=== PATIENT | female | born 1945 | race Caucasian/White ===

== ENCOUNTER 2018-10-28 20:10 | Emergency (ER) | payer OTHER ==
--- NOTE | 2018-10-28 21:13 | RAD REPORT ---
EXAM DESCRIPTION: RAD - Pelvis - 10/28/2018 9:05 pm CLINICAL HISTORY: PAIN Dislocation COMPARISON: None FINDINGS: AP pelvis and right hip-multiple projections A right total hip arthroplasty is noted to which is dislocated. The femoral head component appears caceres perior to the acetabular cup. No fracture is seen.
[2018-10-28] MEDS ORDERED: NA CHLORIDE 0.9% 1,000 ML ONE (22:35)
[2018-10-28] MEDS ORDERED: PROPOFOL 200 MG/20 ML VIAL IV ONE (22:35)
--- NOTE | 2018-10-28 23:43 | EDPHYS ---
Physician Documentation [facility] Name: Lizz Pettit Age: 73 yrs Sex: Female : 1945 Arrival Date: 10/28/2018 Time: 20:13 Bed 4 Private MD: ED Physician Haile Wilks HPI: 10/29 05:50 This 73 yrs old Female presents to ER via EMS with complaints of Hip Injury. tw4 05:50 The patient or guardian reports an injury, pain. that occurred at home, sustained from tw4 unknown reason, the right lower extremity is shortened, right leg is externally rotated, The patient is not able to ambulate. The complaints affect the right hip. Onset: The symptoms/episode began/occurred today. Modifying factors: The symptoms are alleviated by nothing, the symptoms are aggravated by nothing. Associated signs and symptoms: Loss of consciousness: the patient experienced no loss of consciousness. The patient has not experienced similar symptoms in the past. Historical: - Allergies: 10/28 20:21 No Known Allergies; lp1 - Home Meds: 20:21 rosuvastatin 10 mg oral tab 1 tab once daily [Active]; prednisone 5 mg Oral tab once lp1 daily [Active]; leflunomide 20 mg oral tab 1 tab once daily [Active]; duloxetine 30 mg oral cpDR 1 cap once daily [Active]; omeprazole 20 mg Oral cpDR 1 cap 2 times per day [Active]; hydroxychloroquine 200 mg oral tab 2 times per day [Active]; telmisartan 40 mg oral tab 1 tab once daily [Active]; - PMHx: 20:21 Hypertension; Hyperlipidemia; Arthritis; Rheumatoid Arthritis; lp1 - PSHx: 20:21 R Hip replacement; Shoulder surgery; back surgery; L arm surgery; lp1 - Immunization history:: Adult Immunizations up to date. - Social history:: Smoking status: Patient/guardian denies using tobacco. - Ebola Screening: : No symptoms or risks identified at this time. ROS: 10/29 05:50 Constitutional: Negative for fever, chills, and weight loss, Eyes: Negative for injury, tw4 pain, redness, and discharge, Cardiovascular: Negative for chest pain, palpitations, and edema, Respiratory: Negative for shortness of breath, cough, wheezing, and pleuritic chest pain, Abdomen/GI: Negative for abdominal pain, nausea, vomiting, diarrhea, and constipation, Back: Negative for injury and pain. Skin: Negative for injury, rash, and discoloration, Neuro: Negative for headache, weakness, numbness, tingling, and seizure. MS/extremity: Positive for injury or acute deformity, decreased range of motion, pain, swelling, tenderness. Exam: 05:50 Constitutional: This is a well developed, well nourished patient who is awake, alert, tw4 and in no acute distress. Head/Face: Normocephalic, atraumatic. Chest/axilla: Normal chest wall appearance and motion. Nontender with no deformity. No lesions are appreciated. Cardiovascular: Regular rate and rhythm with a normal S1 and S2. No gallops, murmurs, or rubs. Normal PMI, no JVD. No pulse deficits. Respiratory: Lungs have equal breath sounds bilaterally, clear to auscultation and percussion. No rales, rhonchi or wheezes noted. No increased work of breathing, no retractions or nasal flaring. Abdomen/GI: Soft, non-tender, with normal bowel sounds. No distension or tympany. No guarding or rebound. No evidence of tenderness throughout. Back: No spinal tenderness. No costovertebral tenderness. Full range of motion. 05:50 Musculoskeletal/extremity: Extremities: noted in the right hip: decreased ROM, pain, ROM: limited passive range of motion, in the right hip, right gluteal fold and right inner thigh, Joints: the right hip displays dislocation. Vital Signs: 10/28 20:17 BP 136 / 72; Pulse 87; Resp 18; Temp 99(O); Pulse Ox 100% on R/A; Weight 81.65 kg; lp1 Height 5 ft. 3 in. (160.02 cm); Pain 3/10; 21:15 BP 122 / 78; Pulse 77; Resp 18; Pulse Ox 97% on R/A; lp1 22:00 BP 119 / 69; Pulse 80; Resp 18; Pulse Ox 100% ; ds4 23:02 BP 120 / 96; Pulse 79; Resp 18; Temp 98.6; Pulse Ox 100% on R/A; Pain 0/10; ak1 23:19 BP 111 / 64; Pulse 83; Resp 18; Pulse Ox 99% on R/A; ak1 20:17 Body Mass Index 31.89 (81.65 kg, 160.02 cm) lp1 Procedures: 10/29 05:50 Reduction: of the right hip, using traction, Patient tolerated well. Post reduction tw4 film - reveals normal alignment. Joint Treatment:. Moderate sedation: Pre-procedure assessment: ASA physical classification: I - healthy, no underlying organic disease, Airway assessment: able to hyperextend neck, able to maintain airway, can open mouth without difficulty, Mallampati classification of tongue size: I - faucial pillars, soft palate, and uvula can be fully visualized, Monitoring during procedure: cardiac/vascular sonographer, continuous pulse oximetry, nurse at bedside at all times, Medications employed: propofol, pt tolerated procedure well, Post-procedure assessment: the patient is not sedated, Respiratory status: even and unlabored, a reversal agent was not used. MDM: 10/28 20:25 Patient medically screened. tw4 10/29 05:50 Differential diagnosis: hip fracture, intertrochanteric fracture, femoral neck tw4 fracture, femoral shaft fracture. Data reviewed: vital signs, nurses notes. Data interpreted: Pulse oximetry: Interpretation: normal. Counseling: I had a detailed discussion with the patient and/or guardian regarding: the historical points, exam findings, and any diagnostic results supporting the discharge/admit diagnosis. 05:50 Test interpretation: by ED physician or midlevel provider: plain radiologic studies. tw4 Special discussion: I discussed with the patient/guardian in detail that at this point there is no indication for admission to the hospital. It is understood, however, that if the symptoms persist or worsen the patient needs to return immediately for re-evaluation. ED course: Pt underwent moderate sedation, traction and manipulation used with reduction of right hip. Pt tolerated procedure well. 10/28 20:26 Order name: Pelvis XRAY tw4 10/28 20:26 Order name: Saline Lock; Complete Time: 22:22 tw4 10/28 20:35 Order name: Hip Right 2 View EDIA 10/28 22:44 Order name: Hip Right 2 View XRAY [facility] 10/28 22:09 Order name: Cardiac monitoring; Complete Time: 22:22 tw4 Administered Medications: 10/28 22:30 Drug: Propofol 100 mg Route: IVP; Site: left antecubital; ak1 23:00 Follow up: Response: No adverse reaction ak1 Disposition: 10/28/18 23:42 Discharged to Home. Impression: Central dislocation of right hip. - Condition is Stable. - Discharge Instructions: Hip Dislocation, [id number]. - Prescriptions for Tramadol 50 mg Oral Tablet - take 1 tablet by ORAL route every 8 hours as needed; 12 tablet. - Medication Reconciliation Form, Thank You Letter, Antibiotic Education, Prescription Opioid Use form. - Follow up: Private Physician; When: Upon discharge from the Emergency Department; Reason: If symptoms return, Recheck today's complaints, Continuance of care. - Problem is new. - Symptoms have improved. Signatures: Dispatcher [employer] [facility] Meaghan Lemus, RN RN lp1 Marta Yarbrough RN RN ak1 Haile Wilks MD MD tw4 Corrections: (The following items were deleted from the chart) 20:35 20:26 Hip Right 1 View+RAD.RAD.BRZ ordered. [facility] 10/29 00:00 10/28 23:42 10/28/2018 23:42 Discharged to Home. Impression: Central dislocation of ak1 right hip. Condition is Stable. Forms are Medication Reconciliation Form, Thank You Letter, Antibiotic Education, Prescription Opioid Use. Follow up: Private Physician; When: Upon discharge from the Emergency Department; Reason: If symptoms return, Recheck today's complaints, Continuance of care. Problem is new. Symptoms have improved. tw4
--- NOTE | 2018-10-28 23:43 | ER ---
Nurse's Notes [facility] Name: Lizz Pettit Age: 73 yrs Sex: Female : 1945 Arrival Date: 10/28/2018 Time: 20:13 Bed 4 Private MD: Diagnosis: Central dislocation of right hip Presentation: 10/28 20:15 Presenting complaint: EMS states: Patient was bending over couch to pepper picker Legos and lp1 felt R hip dislocate; States happens often with wrong movement; Denies any other pain. Transition of care: patient was not received from another setting of care. Onset of symptoms was October 28, 2018 at 19:00. Risk Assessment: Do you want to hurt yourself or someone else? Patient reports no desire to harm self or others. Initial Sepsis Screen: Does the patient meet any 2 criteria? No. Patient's initial sepsis screen is negative. Does the patient have a suspected source of infection? No. Patient's initial sepsis screen is negative. Care prior to arrival: None. 20:15 Method Of Arrival: EMS: [facility] lp1 20:15 Acuity: KEELY 3 lp1 Historical: - Allergies: 20:21 No Known Allergies; lp1 - Home Meds: 20:21 rosuvastatin 10 mg oral tab 1 tab once daily [Active]; prednisone 5 mg Oral tab once lp1 daily [Active]; leflunomide 20 mg oral tab 1 tab once daily [Active]; duloxetine 30 mg oral cpDR 1 cap once daily [Active]; omeprazole 20 mg Oral cpDR 1 cap 2 times per day [Active]; hydroxychloroquine 200 mg oral tab 2 times per day [Active]; telmisartan 40 mg oral tab 1 tab once daily [Active]; - PMHx: 20:21 Hypertension; Hyperlipidemia; Arthritis; Rheumatoid Arthritis; lp1 - PSHx: 20:21 R Hip replacement; Shoulder surgery; back surgery; L arm surgery; lp1 - Immunization history:: Adult Immunizations up to date. - Social history:: Smoking status: Patient/guardian denies using tobacco. - Ebola Screening: : No symptoms or risks identified at this time. Screenin:21 Abuse screen: Denies threats or abuse. Denies injuries from another. Nutritional lp1 screening: No deficits noted. Tuberculosis screening: No symptoms or risk factors identified. Fall Risk Total Neves Fall Scale indicates High Risk Score (45 or more points). Fall prevention measures have been instituted. Side Rails Up X 2 As available patient and family educated on Fall Prevention Program and Strategies. Assessment: 20:21 General: Appears in no apparent distress. Behavior is appropriate for age. Pain: lp1 Complains of pain in right hip Pain currently is 3 out of 10 on a pain scale. Quality of pain is described as aching. Neuro: Level of Consciousness is awake, alert, obeys commands, Oriented to person, place, time, situation. Cardiovascular: Patient's skin is warm and dry. Pulses are 2+ in right dorsalis pedis artery and left dorsalis pedis artery. Respiratory: Respiratory effort is even, unlabored. GI: No deficits noted. : No deficits noted. EENT: No deficits noted. Derm: Skin is pink, warm \T\ dry. Musculoskeletal: Circulation, motion, and sensation intact. Range of motion: limited in right hip. 21:15 Reassessment: Patient appears in no apparent distress at this time. No changes from lp1 previously documented assessment. Patient and/or family updated on plan of care and expected duration. Pain level reassessed. 22:21 Reassessment: Patient aware of conscious sedation; family at bedside. lp1 23:01 Reassessment: pt awake and alert after sedation for reduction of the right hip. pt ak1 family at bedside. see sedation flow sheet for vitals. Vital Signs: 20:17 BP 136 / 72; Pulse 87; Resp 18; Temp 99(O); Pulse Ox 100% on R/A; Weight 81.65 kg; lp1 Height 5 ft. 3 in. (160.02 cm); Pain 3/10; 21:15 BP 122 / 78; Pulse 77; Resp 18; Pulse Ox 97% on R/A; lp1 22:00 BP 119 / 69; Pulse 80; Resp 18; Pulse Ox 100% ; ds4 23:02 BP 120 / 96; Pulse 79; Resp 18; Temp 98.6; Pulse Ox 100% on R/A; Pain 0/10; ak1 23:19 BP 111 / 64; Pulse 83; Resp 18; Pulse Ox 99% on R/A; ak1 20:17 Body Mass Index 31.89 (81.65 kg, 160.02 cm) lp1 ED Course: 20:13 Patient arrived in ED. lp1 20:17 Triage completed. lp1 20:17 Arm band placed on left wrist. lp1 20:21 Patient has correct armband on for positive identification. Placed in gown. Bed in low lp1 position. Call light in reach. Side rails up X2. Pulse ox on. NIBP on. 20:25 Haile Wilks MD is Attending Physician. tw4 21:05 Pelvis XRAY In Process Unspecified. EDMS 21:05 Hip Right 2 View In Process Unspecified. EDMS 21:25 Meaghan Lemus, RN is Primary Nurse. lp1 21:45 Consent for conscious sedation explained by staff, explained by physician, signed by lp1 patient. 22:22 Inserted saline lock: 22 gauge in left antecubital area, using aseptic technique. ak1 22:22 Assist provider with reduction of right pathologic or non traumatic hip using ak1 manipulation, Set up for procedure. Performed by Haile Wilks MD. Oxygen administration via non-rebreather mask \T\ 15L/min. 22:23 ui designer on. Door closed. Visitors limited. Warm blanket given. ak1 23:05 X-ray completed. Portable x-ray completed in exam room. Patient tolerated procedure la2 well. 23:07 Hip Right 2 View XRAY In Process Unspecified. EDMS 23:59 IV discontinued, intact, bleeding controlled, No redness/swelling at site. Pressure ak1 dressing applied. Administered Medications: 22:30 Drug: Propofol 100 mg Route: IVP; Site: left antecubital; ak1 23:00 Follow up: Response: No adverse reaction ak1 Outcome: 23:42 Discharge ordered by . tw4 23:59 Discharged to home via wheelchair, with family. ak1 23:59 Condition: good 23:59 Discharge instructions given to patient, family, Instructed on discharge instructions, follow up and referral plans. no drinking with medication, no driving heavy equipment, medication usage, Demonstrated understanding of instructions, follow-up care, medications, Prescriptions given X 1. 01/03 00:00 Patient left the ED. ak1 Signatures: Dispatcher [employer] [facility] Meaghan Lemus, RAJWINDER RN lp1 Tam Triplett ds4 Marta Yarbrough RN RN ak1 Adriana, Haile Berrios, [place] tw4
--- NOTE | 2018-10-29 08:03 | RAD REPORT ---
EXAM DESCRIPTION: RAD - Hip Right 2 View - 10/28/2018 11:09 pm CLINICAL HISTORY: Dislocation of right hip implant COMPARISON: October 28 FINDINGS: AP and frog-leg views of the right hip were obtained. Dislocated femoral component has be en reduced. Heterotopic bone superior to the greater trochanter and along the medial margin of the im plant neck are unchanged. IMPRESSION: Femoral component has been reduced back into the acetabular cup. No residual suspicious or unexpected finding.
--- NOTE | 2018-10-29 10:59 | RAD REPORT ---
EXAM DESCRIPTION: RAD - Hip Right 2 View - 10/28/2018 9:05 pm CLINICAL HISTORY: PAIN Dislocation COMPARISON: None FINDINGS: AP pelvis and right hip-multiple projections A right total hip arthroplasty is noted to which is dislocated. The femoral head component appears caceres perior to the acetabular cup. No fracture is seen.
== END 2018-10-29 | disposition home or self-care (01) ==
LOC: ER 20:10
PROC: 0SS9XZZ Reposition Right Hip Joint, External Approach (ICD-10-PCS; principal; 2018-10-29)
DX: S73 Dislocation and sprain of joint and ligaments of hip (principal); X58.XXXA Exposure to other specified factors, initial encounter; Y93.9 Activity, unspecified; Y92.009 Unspecified place in unspecified non-institutional (private) residence as the place of occurrence of the external cause; I10 Essential (primary) hypertension; E78.5 Hyperlipidemia, unspecified
CPT/HCPCS: 27250; 72170; 73502 ×2; 96374; 99285; J2704; J7030

== ENCOUNTER 2020-12-08 15:08 | Emergency (ER) | payer OTHER ==
--- NOTE | 2020-12-08 20:38 | RAD REPORT ---
EXAM DESCRIPTION: RAD - Shoulder Left 2 View - 12/08/2020 8:12 pm CLINICAL HISTORY: PAIN COMPARISON: No comparisons FINDINGS: There is a dislocated left total shoulder arthroplasty noted. Fracture is not evident.
[2020-12-08] MEDS ORDERED: TRAMADOL HCL 50 MG TAB ONE (20:43)
[2020-12-08] MEDS ORDERED: NA CHLORIDE 0.9% 1,000 ML ONE (21:20)
[2020-12-08] MEDS ORDERED: propofoL 200 MG/20 ML VIAL IV ONE (21:20)
--- NOTE | 2020-12-08 22:15 | EDPHYS ---
Physician Documentation [facility] Name: Lizz Pettit Age: 75 yrs Sex: Female : 1945 Arrival Date: 12/08/2020 Time: 15:13 Bed 18 Private MD: ED Physician Haile Wilks HPI: 12/09 04:42 This 75 yrs old Female presents to ER via Ambulatory with complaints of tw4 Shoulder Pain. 04:42 The patient or guardian complains of decreased range of motion, deformity. left tw4 shoulder. Context: The problem was sustained at home. Onset: The symptoms/episode began/occurred this morning, today. Modifying factors: the symptoms are alleviated by remaining still, The symptoms are aggravated by movement. Severity of symptoms: At their worst the symptoms were moderate, in the emergency department the symptoms are unchanged. The patient has not experienced similar symptoms in the past. Historical: - PMHx: 12/08 15:21 Arthritis; Hyperlipidemia; Hypertension; Rheumatoid Arthritis; ll1 - PSHx: 15:21 R Hip replacement; back surgery; Shoulder surgery; L arm surgery; ll1 - Immunization history:: Flu vaccine is up to date. - Social history:: Smoking status: Patient denies any tobacco usage or history of. ROS: 12/09 04:42 Constitutional: Negative for fever, chills, and weight loss, Eyes: Negative for injury, tw4 pain, redness, and discharge, Cardiovascular: Negative for chest pain, palpitations, and edema, Respiratory: Negative for shortness of breath, cough, wheezing, and pleuritic chest pain, Abdomen/GI: Negative for abdominal pain, nausea, vomiting, diarrhea, and constipation, Back: Negative for injury and pain, Skin: Negative for injury, rash, and discoloration, Neuro: Negative for headache, weakness, numbness, tingling, and seizure. MS/extremity: Positive for injury or acute deformity, decreased range of motion, deformity, pain, Negative for abrasion, bite, decreased range of motion, ecchymosis, erythema, laceration, paresthesias, puncture, rash, swelling, tingling. Exam: 04:42 Constitutional: This is a well developed, well nourished patient who is awake, alert, tw4 and in no acute distress. Head/Face: Normocephalic, atraumatic. Chest/axilla: Normal chest wall appearance and motion. Nontender with no deformity. No lesions are appreciated. Cardiovascular: Regular rate and rhythm with a normal S1 and S2. No gallops, murmurs, or rubs. Normal PMI, no JVD. No pulse deficits. Respiratory: Lungs have equal breath sounds bilaterally, clear to auscultation and percussion. No rales, rhonchi or wheezes noted. No increased work of breathing, no retractions or nasal flaring. Abdomen/GI: Soft, non-tender, with normal bowel sounds. No distension or tympany. No guarding or rebound. No evidence of tenderness throughout. Back: No spinal tenderness. No costovertebral tenderness. Full range of motion. 04:42 Musculoskeletal/extremity: Extremities: noted in the chest and anterior aspect of left shoulder: Vital Signs: 12/08 15:21 BP 134 / 79; Pulse 75; Resp 16; Temp 97.0; Pulse Ox 98% on R/A; Weight 77.11 kg; Height ll1 5 ft. 0 in. (152.40 cm); Pain 3/10; 21:32 BP 144 / 82; Pulse 71; Resp 15; Temp 98; Pulse Ox 98% on 3 lpm NC; ll2 21:38 BP 132 / 57; Pulse 73; Resp 18; Pulse Ox 100% on 3 lpm NC; ll2 21:48 BP 140 / 72; Pulse 72; Resp 21; Pulse Ox 100% on 3 lpm NC; ll2 15:21 Body Mass Index 33.20 (77.11 kg, 152.40 cm) ll1 Procedures: 12/09 04:42 Reduction: of the left shoulder, using traction, manipulation, Immobilized with tw4 shoulder immobilizer. Patient tolerated well. Post reduction film - reveals normal alignment. Moderate sedation: Pre-procedure assessment: ASA physical classification: I - healthy, no underlying organic disease, Airway assessment: able to hyperextend neck, able to maintain airway, can open mouth without difficulty, Mallampati classification of tongue size: I - faucial pillars, soft palate, and uvula can be fully visualized, Monitoring during procedure: telemetry monitor, continuous pulse oximetry, nurse at bedside at all times, Medications employed: Propofol, Post-procedure assessment: the patient is moderately sedated, Respiratory status: even and unlabored, a reversal agent was not used. MDM: 12/08 20:24 Patient medically screened. tw4 12/09 04:42 Differential diagnosis: Anterior dislocation with fracture, Anterior dislocation tw4 without fracture, Posterior dislocation with fracture, Posterior dislocation without fracture. Data reviewed: vital signs, nurses notes. Data interpreted: Pulse oximetry: Interpretation: normal. Counseling: I had a detailed discussion with the patient and/or guardian regarding: the historical points, exam findings, and any diagnostic results supporting the discharge/admit diagnosis. Special discussion: I discussed with the patient/guardian in detail that at this point there is no indication for admission to the hospital. It is understood, however, that if the symptoms persist or worsen the patient needs to return immediately for re-evaluation. 12/08 20:01 Order name: Shoulder Left (2 View) XRAY tw4 12/08 21:38 Order name: Shoulder Left (2 View) XRAY tw4 Administered Medications: 12/08 20:32 Drug: traMADol 50 mg Route: PO; ll2 21:30 Follow up: Response: No adverse reaction ll2 21:32 Drug: Propofol 100 mg Route: IVP; Site: right antecubital; ll2 23:04 Follow up: Response: No adverse reaction ll2 23:01 CANCELLED (Other Intervention Used): Propofol 100 mg IVP once ll2 Disposition: 12/08/20 22:14 Discharged to Home. Impression: Dislocation of unspecified parts of left shoulder girdle. - Condition is Stable. - Discharge Instructions: Shoulder Dislocation. - Prescriptions for Tramadol 50 mg Oral Tablet - take 1 tablet by ORAL route every 8 hours as needed; 12 tablet. - Medication Reconciliation Form, Thank You Letter, Antibiotic Education, Prescription Opioid Use form. - Follow up: Private Physician; When: Upon discharge from the Emergency Department; Reason: Recheck today's complaints, Continuance of care, Re-evaluation by your physician. - Problem is an ongoing problem. - Symptoms have improved. Signatures: Dispatcher [employer] Haile Wise MD MD tw4 Jeny Scott RN RN ll2 Sandy Sanabria RN RN ll1 Corrections: (The following items were deleted from the chart) 20:11 19:30 Shoulder Right 2 View+RAD.RAD.BRZ ordered. EDMS EDMS 22:58 22:14 12/08/2020 22:14 Discharged to Home. Impression: Dislocation of unspecified parts ll2 of left shoulder girdle. Condition is Stable. Forms are Medication Reconciliation Form, Thank You Letter, Antibiotic Education, Prescription Opioid Use. Follow up: Private Physician; When: Upon discharge from the Emergency Department; Reason: Recheck today's complaints, Continuance of care, Re-evaluation by your physician. Problem is an ongoing problem. Symptoms have improved. tw4 23:01 23:00 Propofol 100 mg IVP once ordered. ll2 ll2 23:01 23:00 Propofol 100 mg IVP once given. ll2 ll2 23:01 23:01 Propofol 100 mg IVP once ordered. ll2 ll2 23:05 22:58 12/08/2020 22:14 Discharged to Home. Impression: Dislocation of unspecified parts ll2 of left shoulder girdle. Condition is Stable. Discharge Instructions: Shoulder Dislocation. Prescriptions for Tramadol 50 mg Oral Tablet - take 1 tablet by ORAL route every 8 hours as needed; 12 tablet. and Forms are Medication Reconciliation Form, Thank You Letter, Antibiotic Education, Prescription Opioid Use. Follow up: Private Physician; When: Upon discharge from the Emergency Department; Reason: Recheck today's complaints, Continuance of care, Re-evaluation by your physician. Problem is an ongoing problem. Symptoms have improved. ll2
--- NOTE | 2020-12-08 22:15 | ER ---
Nurse's Notes [facility] Name: Lizz Pettit Age: 75 yrs Sex: Female : 1945 Arrival Date: 12/08/2020 Time: 15:13 Bed 18 Private MD: Diagnosis: Dislocation of unspecified parts of left shoulder girdle Presentation: 12/08 15:21 Chief complaint: Patient states: L shoulder popped out of joint around 1300 today. She ll1 can usually pop it back in herself, can't today. Was pulling on her upright walker when this happened. Coronavirus screen: Client denies travel out of the [place] in the last 14 days. At this time, the client does not indicate any symptoms associated with coronavirus-19. Ebola Screen: Patient denies travel to an Ebola-affected area in the 21 days before illness onset. Initial Sepsis Screen: Does the patient meet any 2 criteria? No. Patient's initial sepsis screen is negative. Does the patient have a suspected source of infection? Yes: Bone or joint infection. Risk Assessment: Do you want to hurt yourself or someone else? Patient reports no desire to harm self or others. Onset of symptoms was December 08, 2020. 15:21 Method Of Arrival: Ambulatory ll1 15:21 Acuity: KEELY 3 ll1 Historical: - PMHx: 15:21 Arthritis; Hyperlipidemia; Hypertension; Rheumatoid Arthritis; ll1 - PSHx: 15:21 R Hip replacement; back surgery; Shoulder surgery; L arm surgery; ll1 - Immunization history:: Flu vaccine is up to date. - Social history:: Smoking status: Patient denies any tobacco usage or history of. Screenin:30 Abuse screen: Denies threats or abuse. Nutritional screening: No deficits noted. ll2 Tuberculosis screening: No symptoms or risk factors identified. Fall Risk None identified. Assessment: 20:30 General: Appears in no apparent distress. Behavior is calm, cooperative, appropriate ll2 for age. Pain: Complains of pain in posterior aspect of left shoulder. Neuro: Level of Consciousness is awake, alert, obeys commands, Oriented to person, place, time, situation. Cardiovascular: Patient's skin is warm and dry. Respiratory: Airway is patent Respiratory effort is even, unlabored, Respiratory pattern is regular, symmetrical. 21:30 Reassessment: Patient and/or family updated on plan of care and expected duration. Pain em level reassessed. Patient is alert, oriented x 3, equal unlabored respirations, skin warm/dry/pink. 22:20 Reassessment: pt pending D/C awaiting for ride. ll2 Vital Signs: 15:21 BP 134 / 79; Pulse 75; Resp 16; Temp 97.0; Pulse Ox 98% on R/A; Weight 77.11 kg; Height ll1 5 ft. 0 in. (152.40 cm); Pain 3/10; 21:32 BP 144 / 82; Pulse 71; Resp 15; Temp 98; Pulse Ox 98% on 3 lpm NC; ll2 21:38 BP 132 / 57; Pulse 73; Resp 18; Pulse Ox 100% on 3 lpm NC; ll2 21:48 BP 140 / 72; Pulse 72; Resp 21; Pulse Ox 100% on 3 lpm NC; ll2 15:21 Body Mass Index 33.20 (77.11 kg, 152.40 cm) ll1 ED Course: 15:13 Patient arrived in ED. mr 15:20 Arm band placed on. ll1 15:23 Triage completed. ll1 16:27 Silver Bonilla MD is Attending Physician. kdr 19:29 Attending Physician role handed off by Silver Bonilla MD tw4 19:29 Haile Wilks MD is Attending Physician. tw4 20:12 Shoulder Left (2 View) XRAY In Process Unspecified. EDMS 20:22 Jeny Scott, RAJWINDER is Primary Nurse. ll2 20:30 Patient has correct armband on for positive identification. Bed in low position. Call ll2 light in reach. Side rails up X 1. water treatment operator on. Pulse ox on. NIBP on. 21:49 Shoulder Left (2 View) XRAY In Process Unspecified. EDMS 23:04 No provider procedures requiring assistance completed. IV discontinued, intact, ll2 bleeding controlled, No redness/swelling at site. Pressure dressing applied. Administered Medications: 20:32 Drug: traMADol 50 mg Route: PO; ll2 21:30 Follow up: Response: No adverse reaction ll2 21:32 Drug: Propofol 100 mg Route: IVP; Site: right antecubital; ll2 23:04 Follow up: Response: No adverse reaction ll2 23:01 CANCELLED (Other Intervention Used): Propofol 100 mg IVP once ll2 Outcome: 22:14 Discharge ordered by tw4 22:58 Patient left the ED. ll2 23:04 Discharged to home via wheelchair. ll2 23:04 Condition: stable 23:04 Discharge instructions given to patient, Instructed on discharge instructions, follow up and referral plans. medication usage, Demonstrated understanding of instructions, follow-up care, medications, Prescriptions given X 1. 23:05 Patient left the ED. ll2 Signatures: Dispatcher [employer] EDMS Silver Bonilla MD MD kdr Rivera, Mary mr Rajesh Sunshine RN RN Haile Lange MD MD tw4 Jeny Scott RN RN ll2 Sandy Sanabria RN RN ll1 Corrections: (The following items were deleted from the chart) 23:01 21:32 Propofol 100 mg IVP in right antecubital ll2 ll2 23:01 23:01 Response: No adverse reaction ll2 ll2
[2020-12-08 23:09] VITALS: TEMP 98
[2020-12-08 23:11] VITALS: O2SAT 100
[2020-12-08 23:12] VITALS: BP 140/72
--- NOTE | 2020-12-09 11:43 | RAD REPORT ---
EXAM DESCRIPTION: RAD - Shoulder Left 2 View - 12/08/2020 9:49 pm CLINICAL HISTORY: post reduction Shoulder pain COMPARISON: Shoulder Left 2 View dated 12/08/2020 FINDINGS: Previously noted dislocation of the left total shoulder arthroplasty has been reduced. No fracture evident.
== END 2020-12-08 23:05 | disposition home or self-care (01) ==
LOC: ER 15:08
PROC: 0RSKXZZ Reposition Left Shoulder Joint, External Approach (ICD-10-PCS; principal; 2020-12-08)
DX: S43.305A Dislocation of unspecified parts of left shoulder girdle, initial encounter (principal); X50.9XXA Other and unspecified overexertion or strenuous movements or postures, initial encounter; Y93.89 Activity, other specified; Y92.009 Unspecified place in unspecified non-institutional (private) residence as the place of occurrence of the external cause; Z96.641 Presence of right artificial hip joint; I10 Essential (primary) hypertension
CPT/HCPCS: 73030 ×2; 96374; 99285; 23655; J2704; J7030

== ENCOUNTER 2021-01-09 21:56 | Emergency (ER) | payer OTHER ==
[2021-01-09 23:28] LABS: Absolute Lymphocytes (CBC) 2.6 K/uL (0.7-4.9); Hematocrit 31.3 % (36.0-45.0); Lymphocytes % 30.7 % (15.3-44.8); MPV 9.9 fL (7.6-11.3); RBC Red Blood Cell Count 3.35 M/uL (3.86-4.86)
[2021-01-09 23:40] LABS: Potassium 4.4 mmol/L (3.5-5.1)
[2021-01-09] MEDS ORDERED: MIDAZOLAM HCL 2 MG/2 ML INJ ONE ×2 (23:49→23:50)
[2021-01-09] MEDS ORDERED: NA CHLORIDE 0.9% 1,000 ML ONE (23:50)
[2021-01-09] MEDS ORDERED: MORPHINE 4 MG/ML SYR ONE (23:50)
[2021-01-09] MEDS ORDERED: ONDANSETRON 4 MG/2 ML VIAL ONE (23:50)
[2021-01-09] MEDS ORDERED: ETOMIDATE 20 MG/10 ML VIAL IV ONE (23:50)
[2021-01-10] MEDS ORDERED: TRAMADOL HCL 50 MG TAB ONE (00:27)
[2021-01-10] MEDS ORDERED: ETOMIDATE 20 MG/10 ML VIAL IV ONE (00:29)
[2021-01-10] MEDS ORDERED: MIDAZOLAM HCL 2 MG/2 ML INJ ONE (00:31)
--- NOTE | 2021-01-10 01:07 | ER ---
Nurse's Notes [facility] Name: Lizz Pettit Age: 75 yrs Sex: Female : 1945 Arrival Date: 01/09/2021 Time: 21:59 Bed 3 Private MD: Diagnosis: Recurrent dislocation, right hip Presentation: 01/09 21:59 Chief complaint: EMS states: Pt reports she was sitting on the couch and felt the right ea hip slip out of place, reported this has occurred in the past. Pt refused pain medications with EMS. Coronavirus screen: At this time, the client does not indicate any symptoms associated with coronavirus-19. Ebola Screen: No symptoms or risks identified at this time. Initial Sepsis Screen: Does the patient meet any 2 criteria? No. Patient's initial sepsis screen is negative. Does the patient have a suspected source of infection? No. Patient's initial sepsis screen is negative. Risk Assessment: Do you want to hurt yourself or someone else? Patient reports no desire to harm self or others. Onset of symptoms was January 09, 2021. 21:59 Method Of Arrival: EMS: [facility] ea 21:59 Acuity: KEELY 3 ea Triage Assessment: 22:04 General: Appears uncomfortable, Behavior is appropriate for age. Pain: Complains of ea pain in right hip. Neuro: Level of Consciousness is awake, alert, obeys commands, Oriented to person, place, time, situation. Respiratory: Airway is patent Respiratory effort is even, unlabored, Respiratory pattern is regular, symmetrical. Derm: Skin is pink, warm \T\ dry. Musculoskeletal: to right hip. Historical: - Allergies: 01/10 00:27 No Known Allergies; em - Home Meds: 01/09 22:04 duloxetine 30 mg Oral cpDR 1 cap once daily [Active]; hydroxychloroquine 200 mg Oral ea tab 2 times per day [Active]; leflunomide 20 mg Oral tab 1 tab once daily [Active]; omeprazole 20 mg Oral cpDR 1 cap 2 times per day [Active]; prednisone 5 mg Oral tab once daily [Active]; rosuvastatin 10 mg Oral tab 1 tab once daily [Active]; telmisartan 40 mg Oral tab 1 tab once daily [Active]; - PMHx: 22:04 Arthritis; Hyperlipidemia; Hypertension; Rheumatoid Arthritis; ea - PSHx: 22:04 R Hip replacement; back surgery; Shoulder surgery; L arm surgery; ea - Immunization history:: Adult Immunizations up to date. - Social history:: Smoking status: Patient denies any tobacco usage or history of. Screenin:02 Abuse screen: Denies threats or abuse. Nutritional screening: No deficits noted. ea Tuberculosis screening: No symptoms or risk factors identified. Fall Risk None identified. Assessment: 23:30 General: Appears in no apparent distress. uncomfortable, Behavior is calm, cooperative. em Pain: Complains of pain in right hip Pain currently is 4 out of 10 on a pain scale. at worst was 10 out of 10 on a pain scale. Neuro: Level of Consciousness is awake, alert, obeys commands, Oriented to person, place, time, situation. Cardiovascular: Capillary refill < 3 seconds Patient's skin is warm and dry. Respiratory: Airway is patent Respiratory effort is even, unlabored, Respiratory pattern is regular, symmetrical. Derm: Skin is intact, is healthy with good turgor, Skin is pink, warm \T\ dry. Musculoskeletal: Capillary refill < 3 seconds, Range of motion: limited in right hip. 01/10 00:40 Reassessment: Patient appears in no apparent distress at this time. Patient and/or em family updated on plan of care and expected duration. Pain level reassessed. Patient is alert, oriented x 3, equal unlabored respirations, skin warm/dry/pink. pt able to move right leg Patient states feeling better. Patient states symptoms have improved. Vital Signs: 01/09 21:59 BP 134 / 67; Pulse 81; Resp 17; Temp 98.6; Pulse Ox 100% on R/A; Weight 79.38 kg; ea Height 5 ft. (152.40 cm); 01/10 00:30 em 01/09 21:59 Body Mass Index 34.18 (79.38 kg, 152.40 cm) ea 00:30 please see concsious sedation flow sheet for VS em ED Course: 01/09 21:59 Patient arrived in ED. ea 22:02 Triage completed. ea 22:02 Arm band placed on right wrist. Patient placed in an exam room, on a stretcher, on ea pulse oximetry. 22:02 Patient has correct armband on for positive identification. Placed in gown. Bed in low ea position. Call light in reach. Side rails up X2. 22:35 William Oconnell MD is Attending Physician. enedelia 22:55 Inserted saline lock: 22 gauge in right antecubital area, using aseptic technique. ds4 Blood collected. 22:56 Pelvis XRAY In Process Unspecified. EDMS 22:56 Hip Right 2 View XRAY In Process Unspecified. EDMS 23:04 Rajesh Sunshine, RAJWINDER is Primary Nurse. em 23:44 Consent for conscious sedation explained by staff, explained by physician, signed by em patient. 01/10 00:02 Tanner Monroy MD is Referral Physician. enedelia 00:20 Assist provider with reduction of right pathologic or non traumatic hip using em manipulation, Set up for procedure. Performed by William Oconnell MD Patient tolerated well. 00:32 Hip Right 2 View XRAY In Process Unspecified. EDMS 01:02 IV discontinued, intact, bleeding controlled, No redness/swelling at site. Pressure em dressing applied. Administered Medications: 01/09 23:37 Drug: Zofran (Ondansetron) 4 mg Route: IVP; Site: right antecubital; em 01/10 00:00 Follow up: Response: No adverse reaction em 01/09 23:40 Drug: morphine 2 mg Route: IVP; Site: right antecubital; em 23:55 Follow up: Response: No adverse reaction; Marked relief of symptoms; Pain is decreased; em RASS: Alert and Calm (0) 23:45 Drug: NS 0.9% 1000 ml Route: IV; Rate: 125 ml/hr; Site: right antecubital; em 01/10 01:05 Follow up: IV Status: Order to discontinue infusion em 01/09 23:50 Drug: Versed 2 mg Route: IVP; Site: right antecubital; em 01/10 00:15 Follow up: Response: No adverse reaction; Marked relief of symptoms em 01/09 23:54 Drug: Versed 2 mg Route: IVP; Site: right antecubital; em 01/10 00:20 Follow up: Response: No adverse reaction em 01/09 23:57 Drug: Etomidate 8 mg Route: IVP; Site: right antecubital; em 01/10 00:20 Follow up: Response: No adverse reaction em 00:09 Not Given (Physician Discretion): Etomidate 10 mg IVP once em 00:17 Drug: Versed 2 mg Route: IVP; Site: right antecubital; em 00:20 Follow up: Response: No adverse reaction; Marked relief of symptoms em 00:18 Drug: Etomidate 10 mg Route: IVP; Site: right antecubital; em 00:20 Follow up: Response: No adverse reaction; Marked relief of symptoms em Outcome: 00:02 Discharge ordered by . enedelia 01:02 Discharged to home via wheelchair. em 01:02 Condition: improved 01:02 Discharge instructions given to patient, Instructed on discharge instructions, follow up and referral plans. Demonstrated understanding of instructions, follow-up care. 01:06 Patient left the ED. em Signatures: Dispatcher [employer] William Jett MD MD cha Munoz, Edgar, RN RN Tam Pickering ds4 Libia Acuña RN RN harry
--- NOTE | 2021-01-10 01:07 | EDPHYS ---
Physician Documentation [facility] Name: Lizz Pettit Age: 75 yrs Sex: Female : 1945 Arrival Date: 01/09/2021 Time: 21:59 Bed 3 Private MD: ED Physician William Oconnell HPI: 01/09 22:40 This 75 yrs old Female presents to ER via EMS with complaints of RIGHT HIP enedelia POPPED OUT. 22:40 The patient or guardian reports decreased range of motion, pain. sustained from unknown enedelia reason. The complaints affect the right hip. Onset: The symptoms/episode began/occurred just prior to arrival. Modifying factors: The symptoms are alleviated by nothing, the symptoms are aggravated by external rotation, flexion, internal rotation. Associated signs and symptoms: Loss of consciousness: the patient experienced no loss of consciousness, Pertinent positives: None. Severity of symptoms: At their worst the symptoms were mild, moderate, in the emergency department the symptoms are unchanged. The patient has experienced similar episodes in the past, multiple times. Historical: - Allergies: 01/10 00:27 No Known Allergies; em - Home Meds: 01/09 22:04 duloxetine 30 mg Oral cpDR 1 cap once daily [Active]; hydroxychloroquine 200 mg Oral ea tab 2 times per day [Active]; leflunomide 20 mg Oral tab 1 tab once daily [Active]; omeprazole 20 mg Oral cpDR 1 cap 2 times per day [Active]; prednisone 5 mg Oral tab once daily [Active]; rosuvastatin 10 mg Oral tab 1 tab once daily [Active]; telmisartan 40 mg Oral tab 1 tab once daily [Active]; - PMHx: 22:04 Arthritis; Hyperlipidemia; Hypertension; Rheumatoid Arthritis; ea - PSHx: 22:04 R Hip replacement; back surgery; Shoulder surgery; L arm surgery; ea - Immunization history:: Adult Immunizations up to date. - Social history:: Smoking status: Patient denies any tobacco usage or history of. ROS: 22:42 Constitutional: Negative for fever, chills, and weight loss, Eyes: Negative for injury, enedelia pain, redness, and discharge, ENT: Negative for injury, pain, and discharge, Neck: Negative for injury, pain, and swelling, Cardiovascular: Negative for chest pain, palpitations, and edema, Respiratory: Negative for shortness of breath, cough, wheezing, and pleuritic chest pain, Abdomen/GI: Negative for abdominal pain, nausea, vomiting, diarrhea, and constipation, Back: Negative for injury and pain, : Negative for injury, bleeding, discharge, and swelling, Skin: Negative for injury, rash, and discoloration, Neuro: Negative for headache, weakness, numbness, tingling, and seizure, Psych: Negative for depression, anxiety, suicide ideation, homicidal ideation, and hallucinations, Allergy/Immunology: Negative for hives, rash, and allergies, Endocrine: Negative for neck swelling, polydipsia, polyuria, polyphagia, and marked weight changes, Hematologic/Lymphatic: Negative for swollen nodes, abnormal bleeding, and unusual bruising. 22:42 MS/extremity: Positive for decreased range of motion, pain, tenderness, of the right hip. Exam: 22:42 Constitutional: This is a well developed, well nourished patient who is awake, alert, enedelia and in no acute distress. Head/Face: Normocephalic, atraumatic. Eyes: Pupils equal round and reactive to light, extra-ocular motions intact. Lids and lashes normal. Conjunctiva and sclera are non-icteric and not injected. Cornea within normal limits. Periorbital areas with no swelling, redness, or edema. ENT: Nares patent. No nasal discharge, no septal abnormalities noted. Tympanic membranes are normal and external auditory canals are clear. Oropharynx with no redness, swelling, or masses, exudates, or evidence of obstruction, uvula midline. Mucous membranes moist. Neck: Trachea midline, no thyromegaly or masses palpated, and no cervical lymphadenopathy. Supple, full range of motion without nuchal rigidity, or vertebral point tenderness. No Meningismus. Chest/axilla: Normal chest wall appearance and motion. Nontender with no deformity. No lesions are appreciated. Cardiovascular: Regular rate and rhythm with a normal S1 and S2. No gallops, murmurs, or rubs. Normal PMI, no JVD. No pulse deficits. Respiratory: Lungs have equal breath sounds bilaterally, clear to auscultation and percussion. No rales, rhonchi or wheezes noted. No increased work of breathing, no retractions or nasal flaring. Abdomen/GI: Soft, non-tender, with normal bowel sounds. No distension or tympany. No guarding or rebound. No evidence of tenderness throughout. Back: No spinal tenderness. No costovertebral tenderness. Full range of motion. Female : Normal external genitalia. Skin: Warm, dry with normal turgor. Normal color with no rashes, no lesions, and no evidence of cellulitis. Neuro: Awake and alert, GCS 15, oriented to person, place, time, and situation. Cranial nerves II-XII grossly intact. Motor strength 5/5 in all extremities. Sensory grossly intact. Cerebellar exam normal. Normal gait. Psych: Awake, alert, with orientation to person, place and time. Behavior, mood, and affect are within normal limits. 22:42 Musculoskeletal/extremity: Extremities: grossly normal except: noted in the right hip: decreased ROM, pain, ROM: limited active range of motion due to pain, limited passive range of motion due to pain, Circulation is intact in all extremities. the right hip Compartment Syndrome exam of affected extremity: is normal. Joints: All joints are normal except the right hip displays Weight bearing: is unable to bear weight, DVT Exam: negative Homans' sign noted on exam, no appreciated bluish discoloration, no erythema, no increased warmth, pain, swelling, tenderness. Vital Signs: 21:59 BP 134 / 67; Pulse 81; Resp 17; Temp 98.6; Pulse Ox 100% on R/A; Weight 79.38 kg; ea Height 5 ft. (152.40 cm); 01/10 00:30 em 01/09 21:59 Body Mass Index 34.18 (79.38 kg, 152.40 cm) ea 00:30 please see concsious sedation flow sheet for VS em Procedures: 01/09 23:26 Reduction: of the right hip, using traction, manipulation, flexion, Patient tolerated enedelia well. Post reduction film - reveals normal alignment. MDM: 22:35 Patient medically screened. enedelia 22:44 Differential diagnosis: hip fracture, intertrochanteric fracture, femoral neck enedelia fracture. Data reviewed: vital signs, nurses notes, radiologic studies, plain films. Data interpreted: monitor car operator: rate is 81 beats/min, rhythm is regular, Pulse oximetry: on room air is 100 %. Test interpretation: by ED physician or midlevel provider: plain radiologic studies. Counseling: I had a detailed discussion with the patient and/or guardian regarding: the historical points, exam findings, and any diagnostic results supporting the discharge/admit diagnosis, lab results, radiology results. 01/09 22:40 Order name: CBC with Diff; Complete Time: 23:59 [facility] 01/09 22:40 Order name: Chem 7; Complete Time: 23:59 [facility] 01/09 22:40 Order name: Pelvis XRAY [facility] 01/09 22:40 Order name: Hip Right 2 View XRAY [facility] 01/09 23:59 Order name: Hip Right 2 View XRAY [facility] Administered Medications: 23:37 Drug: Zofran (Ondansetron) 4 mg Route: IVP; Site: right antecubital; em 01/10 00:00 Follow up: Response: No adverse reaction em 01/09 23:40 Drug: morphine 2 mg Route: IVP; Site: right antecubital; em 23:55 Follow up: Response: No adverse reaction; Marked relief of symptoms; Pain is decreased; em RASS: Alert and Calm (0) 23:45 Drug: NS 0.9% 1000 ml Route: IV; Rate: 125 ml/hr; Site: right antecubital; em 01/10 01:05 Follow up: IV Status: Order to discontinue infusion em 01/09 23:50 Drug: Versed 2 mg Route: IVP; Site: right antecubital; em 01/10 00:15 Follow up: Response: No adverse reaction; Marked relief of symptoms em 01/09 23:54 Drug: Versed 2 mg Route: IVP; Site: right antecubital; em 01/10 00:20 Follow up: Response: No adverse reaction em 01/09 23:57 Drug: Etomidate 8 mg Route: IVP; Site: right antecubital; em 01/10 00:20 Follow up: Response: No adverse reaction em 00:09 Not Given (Physician Discretion): Etomidate 10 mg IVP once em 00:17 Drug: Versed 2 mg Route: IVP; Site: right antecubital; em 00:20 Follow up: Response: No adverse reaction; Marked relief of symptoms em 00:18 Drug: Etomidate 10 mg Route: IVP; Site: right antecubital; em 00:20 Follow up: Response: No adverse reaction; Marked relief of symptoms em Disposition: 01/10/21 00:02 Discharged to Home. Impression: Recurrent dislocation, right hip. - Condition is Stable. - Discharge Instructions: Hip Dislocation, Hip Dislocation, [id number]. - Medication Reconciliation Form, Thank You Letter, Antibiotic Education, Prescription Opioid Use form. - Follow up: Dr. Tanner Monroy; When: 2 - 3 days; Reason: Recheck today's complaints, Re-evaluation by your physician. - Problem is new. - Symptoms have improved. Signatures: Dispatcher [employer] William Jett MD MD cha Munoz, Edgar, RN RN em Libia Acuña RN RN harry Corrections: (The following items were deleted from the chart) 01:06 00:02 01/10/2021 00:02 Discharged to Home. Impression: Recurrent dislocation, right em hip. Condition is Stable. Discharge Instructions: Hip Dislocation, Hip Dislocation, [id number]. Forms are Medication Reconciliation Form, Thank You Letter, Antibiotic Education, Prescription Opioid Use. Follow up: Dr. Tanner Monroy; When: 2 - 3 days; Reason: Recheck today's complaints, Re-evaluation by your physician. Problem is new. Symptoms have improved. enedelia
[2021-01-10 01:19] VITALS: BP 134/67; TEMP 98.6; O2SAT 100
--- NOTE | 2021-01-10 08:14 | RAD REPORT ---
EXAM DESCRIPTION: RAD - Pelvis - 01/09/2021 10:59 pm CLINICAL HISTORY: Pelvic pain status post injury FINDINGS: Right femoral prosthesis is dislocated superior laterally. No fracture seen
--- NOTE | 2021-01-10 08:15 | RAD REPORT ---
EXAM DESCRIPTION: RAD - Hip Right 2 View - 01/09/2021 10:59 pm CLINICAL HISTORY: Right hip pain FINDINGS: Right femoral prosthesis is dislocated superior laterally. No fracture seen
--- NOTE | 2021-01-10 08:18 | RAD REPORT ---
EXAM DESCRIPTION: RAD - Hip Right 2 View - 01/10/2021 12:32 am CLINICAL HISTORY: Right hip pain FINDINGS: A femoral prosthesis dislocation has been reduced. No acute fracture
== END 2021-01-10 01:06 | disposition home or self-care (01) ==
LOC: ER 21:56
PROC: 0SS9XZZ Reposition Right Hip Joint, External Approach (ICD-10-PCS; principal; 2021-01-09)
DX: T84.020A Dislocation of internal right hip prosthesis, initial encounter (principal); M06.9 Rheumatoid arthritis, unspecified; E78.5 Hyperlipidemia, unspecified; I10 Essential (primary) hypertension; M19.90 Unspecified osteoarthritis, unspecified site; Z96.641 Presence of right artificial hip joint
CPT/HCPCS: 96361; 85025; 80048; 36415; 72170; 73502 ×2; 96375; 96374; 99284; 27265; J2250 ×3; J7030; J2405

== ENCOUNTER 2021-03-21 22:57 | Emergency (ER) | payer OTHER ==
[2021-03-21] MEDS ORDERED: KETAMINE HCL 500 MG/5 ML VIAL ONE (23:55)
--- NOTE | 2021-03-22 01:22 | ER ---
Nurse's Notes [facility] Name: Lizz Pettit Age: 75 yrs Sex: Female : 1945 Arrival Date: 03/21/2021 Time: 23:00 Bed 8 Private MD: Diagnosis: Recurrent dislocation, right hip Presentation: 03/21 23:00 Chief complaint: Patient states: Pt reports she had a fall denies LOC pt reports she ea was ok when she got up but when she started walking she felt the R hip come out of place. Pt reports this is the 8th time this has happened. Coronavirus screen: At this time, the client does not indicate any symptoms associated with coronavirus-19. Ebola Screen: No symptoms or risks identified at this time. Initial Sepsis Screen: Does the patient meet any 2 criteria? No. Patient's initial sepsis screen is negative. Does the patient have a suspected source of infection? No. Patient's initial sepsis screen is negative. Risk Assessment: Do you want to hurt yourself or someone else? Patient reports no desire to harm self or others. Onset of symptoms was March 21, 2021. 23:00 Method Of Arrival: EMS: [facility] ea 23:00 Acuity: KEELY 3 ea Historical: - PMHx: 23:09 Rheumatoid Arthritis; Hyperlipidemia; Hypertension; Arthritis; ea - PSHx: 23:09 L arm surgery; Shoulder surgery; R Hip replacement; back surgery; ea - Immunization history:: Adult Immunizations unknown. - Social history:: Smoking status: unknown. - Family history:: not pertinent. Screenin:04 Abuse screen: Denies threats or abuse. Nutritional screening: No deficits noted. ea Tuberculosis screening: No symptoms or risk factors identified. Fall Risk None identified. Assessment: 23:10 General: Appears uncomfortable, Behavior is appropriate for age. Pain: Complains of ea pain in right hip. Neuro: Level of Consciousness is awake, alert, obeys commands, Oriented to person, place, time. Cardiovascular: Patient's skin is warm and dry. Respiratory: Airway is patent Respiratory effort is even, unlabored, Respiratory pattern is regular, symmetrical. Derm: Skin is pink, warm \T\ dry. 03/22 01:36 Reassessment: Patient and/or family updated on plan of care and expected duration. Pain ea level reassessed. Patient is alert, oriented x 3, equal unlabored respirations, skin warm/dry/pink. Patient states feeling better. 02:46 Reassessment: Patient and/or family updated on plan of care and expected duration. Pain ea level reassessed. Patient is alert, oriented x 3, equal unlabored respirations, skin warm/dry/pink. Discharge instruction given to patient verbalized the understanding of instruction. Pt left ED ambulatory tolerating well. Vital Signs: 03/21 23:00 BP 133 / 69; Pulse 72; Resp 18; Temp 98.2; Pulse Ox 99% ; Weight 77.11 kg; Height 5 ft. ea 10 in. (177.80 cm); 03/22 01:04 BP 146 / 88; Pulse 77; Resp 18; Temp 98; Pulse Ox 100% ; ea 01:36 BP 127 / 87; Pulse 78; Resp 18; Pulse Ox 99% on R/A; ea 02:40 BP 120 / 78; Pulse 70; Resp 18; Pulse Ox 98% ; ea 03/21 23:00 Body Mass Index 24.39 (77.11 kg, 177.80 cm) ea ED Course: 03/21 22:29 Inserted saline lock: 22 gauge in right antecubital area, using aseptic technique. ds4 23:00 Patient arrived in ED. ea 23:04 Triage completed. ea 23:04 Maya Flor MD is Attending Physician. ma2 23:04 Patient has correct armband on for positive identification. Placed in gown. Bed in low ea position. Call light in reach. Side rails up X2. 23:04 Arm band placed on right wrist. Patient placed in an exam room, on a stretcher, on ea pulse oximetry. 23:09 Libia Acuña, RAJWINDER is Primary Nurse. ea 03/22 01:05 Assist provider with reduction of right hip using manipulation, Set up for procedure. ea Performed by Maya Flor MD Patient tolerated well. 01:28 Hip Right 2 View XRAY In Process Unspecified. EDMS 02:47 IV discontinued, intact, bleeding controlled, No redness/swelling at site. Pressure ea dressing applied. Administered Medications: 01:05 Drug: Ketamine 1 mg/kg Route: IVP; Site: right antecubital; ea 02:00 Follow up: Response: No adverse reaction ea Outcome: 01:21 Discharge ordered by . ma2 02:47 Discharged to home via wheelchair, with family. ea 02:47 Condition: stable 02:47 Discharge instructions given to patient, Instructed on discharge instructions, follow up and referral plans. Demonstrated understanding of instructions, follow-up care. 02:48 Patient left the ED. ea Signatures: Dispatcher [employer] EDTam Galaviz ds4 Libia Acuña RN RN ea Alzahri, Mohammad, MD MD ma2
--- NOTE | 2021-03-22 01:22 | EDPHYS ---
Physician Documentation [facility] Name: Lizz Pettit Age: 75 yrs Sex: Female : 1945 Arrival Date: 03/21/2021 Time: 23:00 Bed 8 Private MD: ED Physician Maya Flor HPI: 03/21 23:12 This 75 yrs old Female presents to ER via EMS with complaints of Fall Injury. ma2 23:12 Details of fall: The patient fell from an upright position. Onset: The symptoms/episode ma2 began/occurred suddenly, 1 hour(s) ago. Severity of symptoms: At their worst the symptoms were mild, in the emergency department the symptoms are unchanged. The patient has not experienced similar symptoms in the past. The patient has experienced similar episodes in the past, several times. right hip pain s/p fall had multiple hip dislocation in the past.. . Historical: - PMHx: 23:09 Rheumatoid Arthritis; Hyperlipidemia; Hypertension; Arthritis; ea - PSHx: 23:09 L arm surgery; Shoulder surgery; R Hip replacement; back surgery; ea - Immunization history:: Adult Immunizations unknown. - Social history:: Smoking status: unknown. - Family history:: not pertinent. ROS: 23:12 Constitutional: Negative for fever, chills, and weight loss. ma2 23:12 All other systems are negative. Exam: 23:12 Constitutional: This is a well developed, well nourished patient who is awake, alert, ma2 and in no acute distress. Chest/axilla: Normal chest wall appearance and motion. Nontender with no deformity. No lesions are appreciated. Cardiovascular: Regular rate and rhythm with a normal S1 and S2. No gallops, murmurs, or rubs. Normal PMI, no JVD. No pulse deficits. Respiratory: Lungs have equal breath sounds bilaterally, clear to auscultation and percussion. No rales, rhonchi or wheezes noted. No increased work of breathing, no retractions or nasal flaring. Abdomen/GI: Soft, non-tender, with normal bowel sounds. No distension or tympany. No guarding or rebound. No evidence of tenderness throughout. Back: No spinal tenderness. No costovertebral tenderness. Full range of motion. Skin: Warm, dry with normal turgor. Normal color with no rashes, no lesions, and no evidence of cellulitis. MS/ Extremity: right hip with limited rom, Pulses equal, no cyanosis. Neurovascular intact. Full, normal range of motion. Neuro: Awake and alert, GCS 15, oriented to person, place, time, and situation. Cranial nerves II-XII grossly intact. Motor strength 5/5 in all extremities. Sensory grossly intact. Cerebellar exam normal. Normal gait. Vital Signs: 23:00 BP 133 / 69; Pulse 72; Resp 18; Temp 98.2; Pulse Ox 99% ; Weight 77.11 kg; Height 5 ft. ea 10 in. (177.80 cm); 03/22 01:04 BP 146 / 88; Pulse 77; Resp 18; Temp 98; Pulse Ox 100% ; ea 01:36 BP 127 / 87; Pulse 78; Resp 18; Pulse Ox 99% on R/A; ea 02:40 BP 120 / 78; Pulse 70; Resp 18; Pulse Ox 98% ; ea 03/21 23:00 Body Mass Index 24.39 (77.11 kg, 177.80 cm) ea Procedures: 01:20 Reduction: of the right hip, using manipulation, Immobilized with Patient tolerated ma2 well. Post reduction film - reveals normal alignment. Moderate sedation: Pre-procedure assessment: ASA physical classification: III - organic disease with definite functional impairment, Airway assessment: able to hyperextend neck, Monitoring during procedure: quality assurance monitor final, continuous pulse oximetry, nurse at bedside at all times, Medications employed: Ketamine, Post-procedure assessment: Respiratory status: even and unlabored. MDM: 03/21 23:04 Patient medically screened. [facility] 23:12 Differential diagnosis: abrasion, contusion, fracture, sprain, strain. [facility] 03/22 01:20 Data reviewed: vital signs, nurses notes. Counseling: I had a detailed discussion with ma the patient and/or guardian regarding: the historical points, exam findings, and any diagnostic results supporting the discharge/admit diagnosis, the presence of at least one elevated blood pressure reading (>120/80) during this emergency department visit. Counseling: I had a detailed discussion with the patient and/or guardian regarding: the need for outpatient follow up. Response to treatment: the patient's symptoms have resolved after treatment. 03/21 23:04 Order name: Hip Right 2 View XRAY pa2 03/21 23:17 Order name: IV Start; Complete Time: 23:30 ma2 03/21 23:19 Order name: NPO; Complete Time: 23:29 ma2 Administered Medications: 01:05 Drug: Ketamine 1 mg/kg Route: IVP; Site: right antecubital; ea 02:00 Follow up: Response: No adverse reaction ea Disposition: 03/22/21 01:21 Discharged to Home. Impression: Recurrent dislocation, right hip. - Condition is Stable. - Discharge Instructions: Hip Arthroscopy, Care After, Hip Dislocation, [id number]. - Medication Reconciliation Form, Thank You Letter, Antibiotic Education, Prescription Opioid Use form. - Follow up: Private Physician; When: Tomorrow; Reason: Continuance of care. Signatures: Dispatcher [employer] Libia Lee RN RN ea Alzahri, Mohammad, MD MD ma2 Corrections: (The following items were deleted from the chart) 02:48 01:21 03/22/2021 01:21 Discharged to Home. Impression: Recurrent dislocation, right ea hip. Condition is Stable. Forms are Medication Reconciliation Form, Thank You Letter, Antibiotic Education, Prescription Opioid Use. Follow up: Private Physician; When: Tomorrow; Reason: Continuance of care. pa2
[2021-03-22 04:03] VITALS: TEMP 98
[2021-03-22 04:07] VITALS: BP 120/78; O2SAT 98
--- NOTE | 2021-03-22 08:57 | RAD REPORT ---
EXAM DESCRIPTION: RAD - Hip Right 2 View - 03/22/2021 1:28 am CLINICAL HISTORY: PAIN COMPARISON: Hip Right 2 View dated 01/10/2021; Hip Right 2 View dated 01/09/2021 FINDINGS: A dislocated right hip total arthroplasty noted. Subsequent two views show relocation of t he hardware into expected positioning. No fracture seen.
== END 2021-03-22 02:48 | disposition home or self-care (01) ==
LOC: ER 22:57
PROC: 0SS9XZZ Reposition Right Hip Joint, External Approach (ICD-10-PCS; principal; 2021-03-22)
DX: T84.020A Dislocation of internal right hip prosthesis, initial encounter (principal); W19.XXXA Unspecified fall, initial encounter; Z96.641 Presence of right artificial hip joint; I10 Essential (primary) hypertension
CPT/HCPCS: 96374; 99284